=== PATIENT | male | born 1970 | race Caucasian/White ===

== ENCOUNTER 2016-10-07 11:24 | Emergency (ER) | payer OTHER ==
[~2016-10-07] VITALS: Ht 170.2 cm; Wt 85.0 kg
[~2016-10-07 11:24] MED LIST: LORTAB 5/500 501 TAB PO; MEDROL 4MG DOSPA4 MG PO; NORCO 325 MG-51 TAB PO; PERCOCET 325 MG1 TA2 PO; PREDNISONE20 MG PO; PRINIVIL40 MG PO; PRINZIDE 12.5 M1 TAB; ULTRAM 50MG TAB50 MG PO
[2016-10-07 11:25] VITALS: BP 132/88; PULSE 86; TEMP 97.6
[2016-10-07] MEDS ORDERED: PREDNISONE20 MG PO (11:39)
[2016-10-07] MEDS ORDERED: COLCRYS0.6 MG PO (11:39)
== END 2016-10-07 11:53 | disposition home or self-care (01) ==
LOC: COL.ER 11:24
DX: M10.072 Idiopathic gout, left ankle and foot (principal)

== ENCOUNTER 2019-11-28 09:16 | Emergency (ER) | payer OTHER ==
[~2019-11-28] VITALS: Ht 165.1 cm; Wt 87.3 kg
[~2019-11-28 09:16] MED LIST changes: +COLCRYS0.6 MG PO
[2019-11-28 09:23] VITALS: BP 132/87; TEMP 97.4
[2019-11-28 10:14] LABS: STREP SCREEN POSITIVE
[2019-11-28 11:16] VITALS: PULSE 86
== END 2019-11-28 11:16 | disposition home or self-care (01) ==
LOC: COL.ER 09:16
PROVIDERS: Nurse Practitioner
DX: J05.0 Acute obstructive laryngitis [croup] (principal); I10 Essential (primary) hypertension; Z87.891 Personal history of nicotine dependence; Z88.6 Allergy status to analgesic agent; Z79.52 Long term (current) use of systemic steroids
CPT/HCPCS: J0561

== ENCOUNTER 2021-03-18 18:17 | Emergency (ER) | payer OTHER ==
[~2021-03-18] VITALS: Ht 165.1 cm; Wt 85.0 kg
[2021-03-18 18:23] VITALS: TEMP 98.6
[2021-03-18] MEDS ORDERED: PREDNISONE50 MG PO (18:40)
[2021-03-18 18:48] VITALS: BP 133/80; PULSE 79
== END 2021-03-18 18:48 | disposition home or self-care (01) ==
LOC: COL.ER 18:17
DX: M25.572 Pain in left ankle and joints of left foot (principal); M10.9 Gout, unspecified; I10 Essential (primary) hypertension; Z87.891 Personal history of nicotine dependence; Z79.899 Other long term (current) drug therapy
CPT/HCPCS: J7512

== ENCOUNTER 2021-03-28 00:15 | Emergency (ER) | payer OTHER ==
[~2021-03-28] VITALS: Ht 165.1 cm; Wt 85.5 kg
[~2021-03-28 00:15] MED LIST changes: +PREDNISONE50 MG PO
[2021-03-28] MEDS ORDERED: PREDNISONE10 MG PO (03:11)
[2021-03-28 08:34] VITALS: BP 138/79; PULSE 78; TEMP 98.2
== END 2021-03-28 03:30 | disposition home or self-care (01) ==
LOC: COL.ER 00:15
DX: M25.572 Pain in left ankle and joints of left foot (principal); M10.9 Gout, unspecified; I10 Essential (primary) hypertension; Z79.899 Other long term (current) drug therapy
CPT/HCPCS: J7512

== ENCOUNTER 2021-05-16 21:30 | Emergency (ER) | payer OTHER ==
[~2021-05-16] VITALS: Ht 165.1 cm; Wt 84.5 kg
[~2021-05-16 21:30] MED LIST changes: +PREDNISONE10 MG PO
[2021-05-16 21:35] VITALS: TEMP 97.8
[2021-05-16] MEDS ORDERED: PREDNISONE20 MG PO (22:04)
[2021-05-16 22:17] VITALS: BP 150/101; PULSE 68
== END 2021-05-16 22:18 | disposition home or self-care (01) ==
LOC: COL.ER 21:30
DX: M10.072 Idiopathic gout, left ankle and foot (principal); I10 Essential (primary) hypertension; Z87.891 Personal history of nicotine dependence; Z79.899 Other long term (current) drug therapy
CPT/HCPCS: J7512

== ENCOUNTER 2021-05-28 18:50 | Emergency (ER) | payer OTHER ==
[~2021-05-28] VITALS: Ht 165.1 cm; Wt 84.1 kg
[2021-05-28 19:16] VITALS: TEMP 99.1
[2021-05-28] MEDS ORDERED: PREDNISONE10 MG PO (20:35)
[2021-05-28 20:53] VITALS: BP 149/88; PULSE 79
== END 2021-05-28 20:55 | disposition home or self-care (01) ==
LOC: COL.ER 18:50
DX: M25.572 Pain in left ankle and joints of left foot (principal); M10.9 Gout, unspecified; I10 Essential (primary) hypertension; Z79.899 Other long term (current) drug therapy
CPT/HCPCS: J7512

== ENCOUNTER 2021-09-21 14:44 | Emergency (ER) | payer OTHER ==
[~2021-09-21] VITALS: Ht 165.1 cm; Wt 85.9 kg
[2021-09-21 15:23] VITALS: BP 132/78; TEMP 98
[2021-09-21] MEDS ORDERED: COZAAR 50MG50 MG/TAB PO (15:26)
[2021-09-21] MEDS ORDERED: PREDNISONE20 MG PO (15:39)
[2021-09-21 16:02] VITALS: PULSE 81
== END 2021-09-21 16:04 | disposition home or self-care (01) ==
LOC: COL.ER 14:44
DX: M10.9 Gout, unspecified (principal); I10 Essential (primary) hypertension; Z87.891 Personal history of nicotine dependence

== ENCOUNTER 2022-02-13 00:12 | Emergency (ER) | payer OTHER ==
[~2022-02-13] VITALS: Ht 165.1 cm; Wt 86.4 kg
[~2022-02-13 00:12] MED LIST changes: +COZAAR 50MG50 MG/TAB PO
[2022-02-13] MEDS ORDERED: PREDNISONE20 MG PO (01:01)
[2022-02-13 01:09] VITALS: BP 153/93; PULSE 75; TEMP 98.3
== END 2022-02-13 01:09 | disposition home or self-care (01) ==
LOC: COL.ER 00:12
DX: M10.9 Gout, unspecified (principal)
CPT/HCPCS: J7512

== ENCOUNTER 2022-03-06 13:33 | Emergency (ER) | payer OTHER ==
[~2022-03-06] VITALS: Ht 165.1 cm; Wt 86.8 kg
[2022-03-06 13:39] VITALS: TEMP 98
[2022-03-06] MEDS ORDERED: INDOCIN50 MG PO (14:00)
[2022-03-06] MEDS ORDERED: PREDNISONE20 MG PO (14:00)
[2022-03-06] MEDS ORDERED: NORCO 325 MG-51 TAB PO (14:00)
[2022-03-06 14:12] VITALS: BP 151/91; PULSE 75
== END 2022-03-06 14:16 | disposition home or self-care (01) ==
LOC: COL.ER 13:33
DX: M10.9 Gout, unspecified (principal); Z87.891 Personal history of nicotine dependence
CPT/HCPCS: J7512

== ENCOUNTER 2022-10-23 11:43 | Emergency (ER) | payer OTHER ==
[~2022-10-23] VITALS: Ht 165.1 cm; Wt 79.5 kg
[~2022-10-23 11:43] MED LIST changes: +INDOCIN50 MG PO
[2022-10-23 11:50] VITALS: TEMP 97.7
[2022-10-23 12:19] LABS: BASO % 0.4 % (0.0-2.0); EOS # 0.1 K/mm3 (0.0-0.7); EOS % 1.4 % (0.0-4.0); GRAN % 63.2 % (42.2-75.2); HEMATOCRIT 44.8 % (42.0-52.0); LYMPH # 1.8 K/mm3 (1.2-3.4); LYMPH % 22.5 % (20.0-51.0); MEAN CELL VOLUME 92 fl (80.0-100.0); MEAN CORPUSCULAR HEMOGLOBIN 33 pg (27-31); MEAN CORPUSCULAR HGB CONC 36 g/dl (33.0-37.0); MEAN PLATELET VOLUME 10.7 fl (7.4-10.4); MONO % 12.4 % (1.7-9.3); PLATELET COUNT 211 K/mm3 (130-400); RED BLOOD COUNT 4.89 M/mm3 (4.20-5.60); REDCELL DISTRIBUTION WIDTH-CV 11.9 % (11.5-14.5)
[2022-10-23 12:40] LABS: ALANINE AMINOTRANSFERASE 21 U/L (0-55); ALBUMIN 4.3 gm/dL (3.5-5.0); ALKALINE PHOSPHATASE 55 U/L (40-150); ANION GAP 16 mmol/L (7-16); AST,SGOT 19 U/L (5-34); BILIRUBIN,TOTAL 1.5 mg/dL (0.2-1.2); BLOOD UREA NITROGEN 15 mg/dL (8-26); CALCIUM 9.8 mg/dL (8.4-10.2); CARBON DIOXIDE 25 mmol/L (22-29); CHLORIDE 101 mmol/L (98-107); CREATININE, serum 1.29 mg/dL (0.72-1.25); GLUCOSE 120 mg/dL (70-99); LIPASE 34 U/L (8-78); POTASSIUM 3.3 mmol/L (3.5-4.5); SODIUM 142 mmol/L (136-145); TOTAL PROTEIN 7.3 gm/dL (6.2-8.1)
[2022-10-23 12:47] LABS: TROPONIN-I < 0.010 ng/mL (0.00-0.033)
[2022-10-23] MEDS ORDERED: ZOFRAN ODT4 MG PO (14:36)
[2022-10-23] MEDS ORDERED: PEPCID 20MG TAB20 MG PO (14:36)
[2022-10-23 14:49] VITALS: BP 143/88; PULSE 93
== END 2022-10-23 14:49 | disposition home or self-care (01) ==
LOC: COL.ER 11:43
PROVIDERS: Emergency Medicine
DX: R10.9 Unspecified abdominal pain (principal); R07.9 Chest pain, unspecified; R11.2 Nausea with vomiting, unspecified; E87.6 Hypokalemia
CPT/HCPCS: J2270; J2405; J7030; Q9967

== ENCOUNTER 2024-03-12 06:53 | Emergency (ER) | payer OTHER ==
[~2024-03-12] VITALS: Ht 165.1 cm; Wt 81.4 kg
[~2024-03-12 06:53] MED LIST changes: +PEPCID 20MG TAB20 MG PO; +ZOFRAN ODT4 MG PO
[2024-03-12 06:59] VITALS: BP 165/96; TEMP 98.1
[2024-03-12] MEDS ORDERED: PREDNISONE20 MG PO (07:27)
[2024-03-12] MEDS ORDERED: predniSONE 20 MG TAB PO ONE (07:30)
[2024-03-12 07:45] VITALS: PULSE 75
== END 2024-03-12 07:45 | disposition home or self-care (01) ==
LOC: COL.ER 06:53
DX: M10.9 Gout, unspecified (principal); Z87.891 Personal history of nicotine dependence
CPT/HCPCS: J7512